=== PATIENT | male | born 1975 | race Caucasian/White ===

== ENCOUNTER 2020-09-18 00:18 | Outpatient (CLI) | payer OTHER, SELFPAY ==
[2020-09-18 18:26] LABS: SARS-CoV-2 RNA PCR Negative
== END 2020-09-18 00:19 | disposition home or self-care (01) ==
LOC: ANHCOVIDDT 00:18
PROVIDERS: Visit Provider Surgery
DX: Z20.822 Contact with and (suspected) exposure to COVID-19 (principal)
CPT/HCPCS: C9803; U0003; U0005

== ENCOUNTER 2020-09-21 01:06 | Day surgery (SDC) | payer OTHER, SELFPAY ==
[2020-09-05 08:43] VITALS: BMI 34.7
[2020-09-21 06:18] VITALS: BP 159/104; PULSE 78; RESP 20; TEMP 36.3; O2SAT 99; BMI 34.5
[2020-09-21] MEDS: LACTATED RINGERS 1,000 ML 150 ML IV CONT (06:29)
--- NOTE | 2020-09-21 07:15 | WPDANESEPPF ---
Anes - Initial Pre Proc Eval Procedure: Operation Date: 09/21/20 07:30 Proposed Procedures p Screening Colonoscopy - Ronnie Ferris DO Date/Time: 09/21/20 07:15 Surgeon: Ronnie Ferris DO Pre Op Diagnosis: Family Hx Of Colon CA Patient Data Age: 44 Gender: M Height: 6 ft 5 in Weight: 132.1 kg Last Vital Signs Temp 97.3 F L 09/21/20 06:18 Pulse 78 09/21/20 06:18 Resp 20 09/21/20 06:18 BP 159/104 H 09/21/20 06:18 Pulse Ox 99 09/21/20 06:18 Allergies Allergy/AdvReac Type Severity Reaction Status Date / Time No Known Allergies Allergy Verified 09/21/20 06:16 Home Medications Medication Instructions Recorded Confirmed Type colchicine mg 09/21/20 History Patient hx anesthesia problems: none Family hx anesthesia problems: none PMFSH Past Medical History Medical History (Updated 09/21/20 @ 07:11 by Abraham Cedeno MD) Gout attack HASEEB (obstructive sleep apnea) Social History Social History Smoking status: Never smoker Alcohol intake: current Drinks per week: 30 Substance use: never Substance use type: does not use Living arrangements: with family Spiritual care concerns: No Anes - Eval Final PreProcedure Day of Procedure 09/21/20 07:15 Patient weight: obese Heart: regular rate and rhythm Lungs: clear to auscultation Airway: Mallampati scale class III Neurological: alert and oriented Last oral intake: >/= 8 hours ASA classification: III Emergent: no Anesthetic plan: proceed Anesthesia type and monitoring: general GIVS and standard monitoring Informed Consent: The patient's anesthetic plan and its attendant risks and benefits were discussed with the patient/family/POA. Questions were solicited and answers provided to the satisfaction of the patient/family/POA.
--- NOTE | 2020-09-21 07:33 | PM.IMHP ---
H&P: HPI History of Present Illness Date/Time: 09/21/20 07:33 Chief Complaint: colonoscopy Narrative: Chris Russell is a 44 year old male who presents for colonoscopy. He has fam hx in his mother with colon cancer. denies any bowel changes. Review of Systems Review of Systems: All systems reviewed & are unremarkable except as noted in HPI and below Constitutional: Constitutional: Denies chills, Denies fever(s), Denies headache(s) and Denies weight loss Eyes: Eyes: Denies change in vision ENT: Denies dizziness, Denies headache(s), Denies neck mass and Denies throat swelling Cardiovascular: Cardiovascular: Denies chest pain, Denies lightheadedness and Denies dyspnea Respiratory: Respiratory: Denies cough, Denies dyspnea and Denies wheezing Gastrointestinal: Gastrointestinal: Denies abdominal pain, Denies change in bowel habits, Denies nausea and Denies vomiting Genitourinary: Genitourinary: Denies hematuria and Denies dysuria Musculoskeletal: Musculoskeletal: Reports as per HPI Integumentary/Breasts: Skin/Breast: Reports as per HPI Neurologic: Denies dizziness and Denies headache(s) Allergic/Immunologic: Allergic/Immunologic: Denies throat swelling and Denies wheezing [facility] Past Medical History Medical History (Updated 09/21/20 @ 07:34 by Ronnie Ferris DO) Gout attack HASEEB (obstructive sleep apnea) Social History Social History Smoking status: Never smoker Alcohol intake: current Drinks per week: 30 Substance use: never Substance use type: does not use Living arrangements: with family Spiritual care concerns: No Meds Home Medications and Allergies Home Medications Medication Instructions Recorded Confirmed Type colchicine mg 09/21/20 History Allergies Allergy/AdvReac Type Severity Reaction Status Date / Time No Known Allergies Allergy Verified 09/21/20 06:16 Vital Signs Vital Signs - 24 hr 09/21/20 06:18 Temperature 36.3 C L Pulse Rate 78 Respiratory Rate 20 Blood Pressure 159/104 H Pulse Oximetry 99 Exam Const: General: no acute distress and alert Orientation/consciousness: patient oriented x3 HENMT: Head: normocephalic and atraumatic Ears: hearing grossly normal bilaterally General nose exam: Normal nares present Mouth: Yes Normal oral and palatal mucosa present Eyes: Periorbital: periorbital findings normal Sclera: sclerae normal EOM: EOMs intact bilaterally Neck: Neck: normal visual inspection, no lymphadenopathy and trachea midline Chest: Chest palpation & inspection: normal inspection of the chest Resp: Effort & Inspection: normal respiratory effort Auscultation: clear to auscultation bilaterally Cardio: Jugular venous distension: no JVD Rate: regular rate Rhythm: regular rhythm Heart sounds: S1 normal heart sound present and S2 normal heart sound present Peripheral pulses: Peripheral pulses 2+ throughout GI: Inspection: normal to inspection GI Palp: Yes Soft to palpation, No Tenderness to palpation present (GI), No Guarding due to palpation present (GI) and No Rebound tenderness present Percussion: Yes normal to percussion Auscultation: normal bowel sounds : General: Yes no CVA tenderness Back/Spine/Pelvis: Back: no CVA tenderness Neuro: General: patient oriented x3, no focal motor deficits and CN's II-XI intact bilaterally Cognition (Neuro): normal cognition Speech: normal speech Motor exam (neuro): 5/5 motor strength present throughout Extrem: General: capillary refill normal and no clubbing, cyanosis or edema Assessment and Plan Assessment and plan (1) Family hx of colon cancer: Code(s): Z80.0 - Family history of malignant neoplasm of digestive organs Status: Acute Assessment and Plan: I have recommended colonoscopy. I have discussed the procedure, risks, benefits, and alternatives with the patient. All questions answered.
[2020-09-21 08:07] VITALS: BP 124/81; PULSE 68; RESP 20; O2SAT 97
[2020-09-21 08:17] VITALS: BP 115/84; PULSE 73; RESP 19; O2SAT 98
[2020-09-21 08:27] VITALS: BP 120/78; PULSE 72; RESP 16; O2SAT 99
== END 2020-09-21 08:36 | disposition home or self-care (01) ==
PROVIDERS: PCP Internal Medicine; Visit Provider Surgery
PROC: 0DJD8ZZ Inspection of Lower Intestinal Tract, Via Natural or Artificial Opening Endoscopic (ICD-10-PCS; CPT 45378; principal; 2020-09-21 07:30)
DX: Z12.11 Encounter for screening for malignant neoplasm of colon (principal); D12.5 Benign neoplasm of sigmoid colon; D12.8 Benign neoplasm of rectum; Z80.0 Family history of malignant neoplasm of digestive organs; G47.33 Obstructive sleep apnea (adult) (pediatric); M10.9 Gout, unspecified; E66.9 Obesity, unspecified; Z68.34 Body mass index [BMI] 34.0-34.9, adult
CPT/HCPCS: 45385; 45384; 88305; C9803; J2704; J7120; U0003; U0005

== ENCOUNTER 2022-07-17 07:15 | Outpatient (CLI) | payer BC, SELFPAY ==
--- NOTE | ~2022-07-17 | US_ITS ---
EXAMINATION: US right upper quadrant DATE: 07/17/2022 07:55 INDICATION: Abnormal liver function tests. TECHNIQUE: Multiple grayscale and Doppler ultrasound images of the abdomen were obtained. COMPARISON: None FINDINGS: The visualized portions of the head of the pancreas are normal. There is diffuse hepatic st eatosis. There is normal flow in main portal vein. The gallbladder is normal in size. No gallstones o r gallbladder wall thickening. There is no sonographic Springer sign. The common duct is normal and harika sures 3 mm. IMPRESSION: 1. Diffuse hepatic steatosis. Reviewed, dictated and finalized at location A. OPERATOR
== END 2022-07-17 07:16 | disposition home or self-care (01) ==
LOC: CHSIMG 07:17
PROVIDERS: PCP Internal Medicine; Visit Provider Internal Medicine
DX: R94.5 Abnormal results of liver function studies (principal)
CPT/HCPCS: 76705

== ENCOUNTER 2024-04-26 10:30 | Emergency (ER) | payer BC, SELFPAY ==
[2024-04-26] VITALS (21 sets, daily range): BP systolic 127–187; BP diastolic 84–115; PULSE 71–90; RESP 10–23; TEMP 36.1; O2SAT 90–97
--- NOTE | ~2024-04-26 | XR_ITS ---
Portable chest x-ray Comparison: None Clinical History: Chest pain Findings: Lungs are clear, without focal consolidation or pleural effusion. Cardiomediastinal silho uette is unremarkable. Bones and soft tissues are unremarkable. Impression: Normal chest. Reviewed, dictated and finalized at location M. Impression: Normal chest.
--- NOTE | 2024-04-26 10:33 | ED.CHESTPAIN ---
HPI - Chest Pain General Chief Complaint: Chest Pain Stated Complaint: chest pain Source: patient Mode of arrival: ambulatory Limitations: no limitations History of Present Illness HPI narrative: 48-year-old male with a history gout, hypertension presents to the ED with a 1 hour history of -- left-sided chest pain with numbness of left upper extremity. No radiation of the pain. The pain came on 1 hour after breakfast and was noted to be 6/ Ten. The pain has decreased over the past 1 hour and is currently 1/10. No shortness of breath or lightheadedness -- diaphoresis for 10 minutes patient had to prior episodes of chest pain over the past 1 year. He had blood work and EKG which were unremarkable. No history of stress test. Patient is a nonsmoker without any history of diabetes or dyslipidemia. The patient has a history of hypertension but is not on any medication. MD complaint: chest pain Onset (ago): hour(s) ( 1 hour) Timing of current episode: episodic Prior episodes: Yes Onset: during rest Pain location: left chest Pain radiation: none Pain scale (0-10): 7 Quality: aching Relieving factors: nothing Exacerbating factors: nothing Associated symptoms: diaphoresis Treatment prior to arrival: aspirin ( 2 baby aspirin tablets) Risk Factors Coronary artery disease risk factors: hypertension Related Data Allergies Allergy/AdvReac Type Severity Reaction Status Date / Time No Known Allergies Allergy Verified 09/21/20 06:16 Review of Systems Review of Systems: All systems reviewed & are unremarkable except as noted in HPI and below Constitutional: Constitutional: Reports as per HPI Eyes: Eyes: Reports as per HPI and Reports no additional eye complaints ENT: Reports system reviewed and no additional complaints, except as documented and Reports as per HPI Cardiovascular: Cardiovascular: Reports as per HPI, Reports no additional cardiovascular complaints and Reports chest pain Respiratory: Respiratory: Reports as per HPI and Reports no additional respiratory complaints Gastrointestinal: Gastrointestinal: Reports as per HPI and Reports no additional gastrointestinal complaints Genitourinary: Genitourinary: Reports no additional male genitourinary complaints and Reports as per HPI Musculoskeletal: Musculoskeletal: Reports no additional musculoskeletal complaints and Reports as per HPI Comments: gouty attacks involving the big toe and ankle Integumentary/Breasts: Skin/Breast: Reports system reviewed and no additional complaints, except as docu and Reports as per HPI Neurologic: Reports system reviewed and no additional complaints, except as documented and Reports as per HPI Psychiatric: Psychiatric: Reports no additional psychiatric complaints and Reports as per HPI Endocrine: Endocrine: Reports no additional endocrine complaints and Reports as per HPI Hematologic/Lymphatic: Hematologic/Lymphatic: Reports no additional hematologic/lymphatic complaints and Reports as per HPI Allergic/Immunologic: Allergic/Immunologic: Reports no additional allergic/immunologic complaints and Reports as per HPI [facility] Past Medical History Medical History Gout attack HASEEB (obstructive sleep apnea) Social History Social History Smoking status: Never smoker Alcohol intake: current Drinks per week: 30 Substance use: never Substance use type: does not use Living arrangements: with family Spiritual care concerns: No Exam Narrative: blood pressure initially was 187/115 which decreased spontaneously to 134/92 Const: General: no acute distress Nutritional Appearance: well nourished Orientation/consciousness: patient oriented x3 Limitations: no limitations HENMT: Head: normal to inspection Ears: external ears normal Face/Nose/Sinus: Normal external nose present Face and sinus: normal facia
--- NOTE | 2024-04-26 10:41 | ECG_ITS ---
Test Date: 2024-04-26 10:37:02 Measurements Intervals [place] Rate: 84 P: 64 HI: 159 QRS: 41 QRSD: 97 T: 58 QT: 347 QTc: 412 Interpretive Statements SINUS RHYTHM VENTRICULAR PREMATURE COMPLEX BASELINE ARTIFACT- I, II, III, AVR, AVL, AVF, V3 BORDERLINE ECG No previous ECG available for comparison Electronically Signed On 04-26-2024 17:36:29 CDT by Mtat Valdes D.O.
[2024-04-26 10:49] LABS: Basophils Absolute Auto 0.04 K/mm3 (0.00-0.10); Basophils Percent Auto 0.7 % (0.0-1.0); Eosinophils Absolute Auto 0.16 K/mm3 (0.02-0.50); Eosinophils Percent Auto 2.6 % (1.0-6.0); Hemoglobin 15.1 g/dL (14.0-18.0); Immature Granulocyte Absolute 0.02 K/mm3 (0.00-0.00); Immature Granulocyte Percent A 0.3 % (0.0-0.0); Lymphocytes Absolute Auto 1.79 K/mm3 (1.10-4.50); Lymphocytes Percent Auto 29.5 % (18.0-42.0); Mean Corpuscular HGB Conc 34.3 g/dL (32-36); Mean Corpuscular Hemoglobin 30.7 pg (27.0-31.0); Mean Corpuscular Volume 89.4 fL (78.0-102.0); Mean Platelet Volume 9.7 fl (8.7-11.0); Monocytes Absolute Auto 0.38 K/mm3 (0.10-0.90); Monocytes Percent Auto 6.3 % (2.0-11.0); Neutrophils Absolute Auto 3.67 K/mm3 (1.70-7.20); Neutrophils Percent Auto 60.6 % (50.0-70.0); Platelet Count Result 210 K/mm3 (150-420); Red Blood Count 4.92 M/mm3 (4.70-6.10); Red Cell Distribution Width 12.4 % (11.6-14.4); White Blood Count 6.1 K/mm3 (4.8-10.8)
[2024-04-26] MEDS: ASPIRIN 81 MG CHEWABLE TABLET 324 MG PO (10:58)
[2024-04-26 11:00] LABS: D Dimer 0.32 mg/L (0.19-0.50); INR 0.9; Partial Thromboplastin Time 27.1 Sec (23.9-30.70); Prothrombin Time 10.4 Seconds (9.50-12.1)
[2024-04-26 11:05] LABS: Alanine Aminotransferase 47 U/L (16-63); Albumin Level 3.9 g/dL (3.4-5.0); Alkaline Phosphatase 78 U/L (46-116); Anion Gap 9 mmol/L (4-12); Aspartate Amino Transferase 48 U/L (15-37); Bilirubin,Total 0.6 mg/dL (0.00-1.00); Blood Urea Nitrogen 14 mg/dL (7-18); Calcium 9.3 mg/dL (8.5-10.1); Carbon Dioxide 28 mmol/L (21-32); Chloride 97 mmol/L (98-108); Estimated CRCL calculation 115 ml/min; Estimated Glomerular Filt Rate > 60; Glucose 202 mg/dL (70-99); Osmolality Calculated 284 mOsm/kg (285-295); Potassium 4.2 mmol/L (3.5-5.1); Sodium 134 mmol/L (136-145); Total Protein 7.6 g/dL (6.4-8.2); Troponin I 4.8 ng/L (0.00-60.4)
--- NOTE | 2024-04-26 13:30 | ECG_ITS ---
Test Date: 2024-04-26 13:37:43 Measurements Intervals [place] Rate: 76 P: 42 LA: 155 QRS: 42 QRSD: 92 T: 88 QT: 367 QTc: 413 Interpretive Statements SINUS RHYTHM WITH OCCASIONAL VENTRICULAR PREMATURE COMPLEXES NONSPECIFIC T-WAVE ABNORMALITY- HIGH LATERAL LEADS BASELINE ARTIFACT- I, II, AVR, AVL, AVF, V1 BORDERLINE ECG Compared to ECG 04/26/2024 10:37:02 NO SIGNIFICANT CHANGE Electronically Signed On 04-26-2024 17:37:40 CDT by Matt Valdes D.O.
[2024-04-26 14:00] LABS: Troponin I 4.5 ng/L (0.00-60.4)
[2024-04-27 10:12] LABS: Hemoglobin A1C 5.7 % (<5.7)
== END 2024-04-26 14:58 | disposition home or self-care (01) ==
PROVIDERS: Emergency Provider Internal Medicine Critical Care Medicine; PCP Internal Medicine
DX: R73.9 Hyperglycemia, unspecified (principal); R07.9 Chest pain, unspecified
CPT/HCPCS: 36415; 71045; 80053; 83036; 83605; 84484; 85025; 85380; 85610; 85730; 93005; 99284; A9270

== ENCOUNTER 2024-05-03 09:18 | Outpatient (CLI) | payer BC, SELFPAY ==
--- NOTE | 2024-05-03 09:30 | EST_ITS ---
Patient Info Name: Chris Russell Age: 48 years : 1975 Gender: Male Ht: 76 in Wt: 300 lbs BSA: 2.75 m2 HR: 75 bpm BP: 117 / 82 mmHg Heart Rhythm: Sinus Arrhythmia Technical Quality: Good Exam Date: 05/03/2024 10:47 AM Exam Location: Echo Lab Patient Status: Outpatient Admit Date: 05/03/2024 Staff Ordering Physician: Nneka Torres MD Attending Provider: Nneka Torres MD Exam Type: CA stress test treadmill w NM Study Info A treadmill exercise stress test was performed. History/Risk Factors Hypertension: Yes Dyslipidemia: Yes Obesity: Yes Summary 1. 1. Negative Wil exercise stress test for ischemic ST change by ECG criteria. 2. 2. Reduced functional capacity, achieving 10 METs of workload. 3. 3. Hypertensive response to exercise. 4. 4. Appropriate HR response to exercise. 5. 5. Appropriate HR recovery at 1 minute post exercise. 6. 6. Nuclear scan to follow and will be reported separately. Please correlate with it. Protocol: Wil Stress ECG Details Stage: REST Duration (min): 1 min : 47 sec Speed (mph): 0.0 Grade (%): 0 HR (bpm): 74 SBP (mmHg): 117 DBP (mmHg): 82 METS: --- Stage: REST Duration (min): 7 min : 6 sec Speed (mph): 0.0 Grade (%): 0 HR (bpm): 88 SBP (mmHg): 117 DBP (mmHg): 82 METS: --- Stage: STAGE 1 Duration (min): 1 min : 0 sec Speed (mph): 1.7 Grade (%): 10 HR (bpm): 99 SBP (mmHg): 117 DBP (mmHg): 82 METS: --- Stage: STAGE 1 Duration (min): 2 min : 0 sec Speed (mph): 1.7 Grade (%): 10 HR (bpm): 104 SBP (mmHg): 117 DBP (mmHg): 82 METS: --- Stage: STAGE 1 Duration (min): 3 min : 0 sec Speed (mph): 1.7 Grade (%): 10 HR (bpm): 106 SBP (mmHg): 199 DBP (mmHg): 76 METS: --- Stage: STAGE 2 Duration (min): 1 min : 0 sec Speed (mph): 2.5 Grade (%): 12 HR (bpm): 119 SBP (mmHg): 199 DBP (mmHg): 76 METS: --- Stage: STAGE 2 Duration (min): 2 min : 0 sec Speed (mph): 2.5 Grade (%): 12 HR (bpm): 128 SBP (mmHg): 199 DBP (mmHg): 76 METS: --- Stage: STAGE 2 Duration (min): 3 min : 0 sec Speed (mph): 2.5 Grade (%): 12 HR (bpm): 136 SBP (mmHg): 218 DBP (mmHg): 76 METS: --- Stage: STAGE 3 Duration (min): 1 min : 0 sec Speed (mph): 3.4 Grade (%): 14 HR (bpm): 153 SBP (mmHg): 218 DBP (mmHg): 76 METS: --- Stage: STAGE 3 Duration (min): 2 min : 0 sec Speed (mph): 3.4 Grade (%): 14 HR (bpm): 169 SBP (mmHg): 218 DBP (mmHg): 76 METS: --- Stage: STAGE 3 Duration (min): 2 min : 0 sec Speed (mph): 3.4 Grade (%): 14 HR (bpm): 169 SBP (mmHg): 218 DBP (mmHg): 76 METS: --- Stage: RECOVERY Duration (min): 0 min : 59 sec Speed (mph): 0.0 Grade (%): 0 HR (bpm): 147 SBP (mmHg): 165 DBP (mmHg): 73 METS: --- Stage: RECOVERY Duration (min): 1 min : 59 sec Speed (mph): 0.0 Grade (%): 0 HR (bpm): 122
--- NOTE | 2024-05-03 13:46 | WPDCARIOSTRE ---
Nuclear Stress Test INDICATIONS Indications: Chest pain PROCEDURE Procedure Performed: Myocardial Perf Spect-Multi Procedure: Patient exercised on a standard Wil protocol and immediately as injected with 33.6 mCi of cardiolyte. Multiple tomographic images were obtained. These are of good quality. There is a small size, mild inferior perfusion defect with stress imaging. A separate resting images were obtained after patient was injected with 11.2 mCi of cardiolyte. Multiple tomographic images were obtained. These are of good quality. There is a small size, mild inferior perfusion defect with rest imaging. CONCLUSION Conclusion: 1. Myocardial perfusion imaging demonstrates a fixed small size inferior defect suggestive of diaphragmatic attenuation artifact. 2. No evidence of reversible ischemia. 3. Left ventriculogram demonstrates mild LV systolic dysfunction at 48% with no wall motion abnormalities. 4. TID score 0.88 is normal.
== END 2024-05-03 09:19 | disposition home or self-care (01) ==
LOC: CHSCARD 09:22
PROVIDERS: PCP Internal Medicine; Visit Provider Internal Medicine
DX: R07.9 Chest pain, unspecified (principal); R94.31 Abnormal electrocardiogram [ECG] [EKG]
CPT/HCPCS: 78452; 93017; A9502

== ENCOUNTER 2025-06-27 01:01 | Day surgery (SDC) | payer BC, SELFPAY ==
[2025-02-17 10:56] VITALS: BMI 35.6
--- NOTE | 2025-06-15 10:41 | PC.NURSE ---
Patient states no new medical history since previous PAT phone call done in January.
[2025-06-27 06:36] VITALS: BP 110/74; PULSE 74; RESP 18; TEMP 36.2; O2SAT 99
[2025-06-27] MEDS: LACTATED RINGERS 1,000 ML 150 ML IV CONT (06:44)
--- NOTE | 2025-06-27 06:46 | P.PNAN_ITS ---
Anes - Initial Pre Proc Eval Procedure: Operation Date: 06/27/25 08:00 Proposed Procedures p Screening Colonoscopy - Ronnie Ferris DO Date/Time: 06/27/25 06:46 Surgeon: Ronnie Ferris DO Pre Op Diagnosis: Prior history of colon polyps Patient Data Age: 49 Gender: M Height: 1.96 m Weight: 136.4 kg Last Vital Signs Temp 36.2 C L 06/27/25 06:36 Pulse 74 06/27/25 06:36 Resp 18 06/27/25 06:36 BP 110/74 06/27/25 06:36 Pulse Ox 99 06/27/25 06:36 O2 Del Method Room Air 06/27/25 06:36 Allergies Allergy/AdvReac Type Severity Reaction Status Date / Time No Known Allergies Allergy Verified 06/27/25 06:35 Home Medications ?Medication ?Instructions ?Recorded ?Confirmed ?Type colchicine 0.6 mg tablet See Rx Instructions .Route 0 12/25/23 02/17/25 Rx .COMPLEX #60 tabs indomethacin 50 mg capsule 50 mg PO Q6H PRN pain #60 c aps 12/25/23 02/17/25 Rx allopurinol 100 mg tablet 100 mg PO DAILY 02/17/2511/16 History losartan 50 mg tablet (Cozaar) 50 mg PO DAILY 02/17/25 06/27/25 History Patient hx anesthesia problems: none Family hx anesthesia problems: none Results Review: All pre-operative results and documents have been reviewed as part of the pre- operative evaluation. [facility] Past Medical History Medical History Gout attack HASEEB (obstructive sleep apnea) Social History Social History Smoking status: Never smoker Alcohol intake: current Drinks per week: 50 Substance use: never Substance use type: does not use Living arrangements: with family Additional living arrangements comments: with sp Anes - Eval Final PreProcedure Day of Procedure 06/27/25 06:46 Patient weight: obese Heart: regular rate and rhythm Lungs: clear to auscultation Airway: Mallampati scale class II Neurological: alert and oriented Last oral intake: >/= 8 hours ASA classification: III Emergent: no Anesthetic plan: proceed Anesthesia type and monitoring: general GIVS and standard monitoring Results Review: All pre-operative results and documents have been reviewed as part of the pre- operative evaluation. Informed Consent: The patient's anesthetic plan and its attendant risks and benefits were discussed with the patient/family/POA. Questions were solicited and answers p rovided to the satisfaction of the patient/family/POA.
--- NOTE | 2025-06-27 08:03 | PM.IMHP ---
H&P: HPI History of Present Illness Date/Time: 06/27/25 08:03 Chief Complaint: family history of colon cancer, personal history of polyps Narrative: this is a 49-year-old man who presents for colonoscopy. His last colonoscopy was 3 years ago and polyps were removed. He has a family history of colon cancer in his mother. He denies any hematochezia or melena. Review of Systems Review of Systems: All systems reviewed & are unremarkable except as noted in HPI and below Constitutional: Constitutional: Denies chills, Denies fever(s), Denies headache(s) and Denies weight loss Eyes: Eyes: Denies change in vision ENT: Denies dizziness, Denies headache(s), Denies neck mass and Denies throat swelling Cardiovascular: Cardiovascular: Denies chest pain, Denies lightheadedness and Denies dyspnea Respiratory: Respiratory: Denies cough, Denies dyspnea and Denies wheezing Gastrointestinal: Gastrointestinal: Denies abdominal pain, Denies change in bowel habits, Denies nausea and Denies vomiting Genitourinary: Genitourinary: Denies hematuria and Denies dysuria Musculoskeletal: Musculoskeletal: Reports as per HPI Integumentary/Breasts: Skin/Breast: Reports as per HPI Neurologic: Denies dizziness and Denies headache(s) Allergic/Immunologic: Allergic/Immunologic: Denies throat swelling and Denies wheezing PMF Past Medical History Medical History Gout attack HASEEB (obstructive sleep apnea) Social History Social History Smoking status: Never smoker Alcohol intake: current Drinks per week: 50 Substance use: never Substance use type: does not use Living arrangements: with family Additional living arrangements comments: with sp Meds Home Medications and Allergies Home Medications ?Medication ?Instructions ?Recorded ?Confirmed ?Type colchicine 0.6 mg tablet See Rx Instructions .Route 12/25/23 02/17/25 Rx .COMPLEX #60 tabs indomethacin 50 mg capsule 50 mg PO Q6H PRN pain #60 caps 12/25/23 02/17/25 Rx allopurinol 100 mg tablet 100 mg PO DAILY 02/17/25 06/27/25 History losartan 50 mg tablet (Cozaar) 50 mg PO DAILY 02/17/25 06/27/25 History Allergies Allergy/AdvReac Type Severity Reaction Status Date / Time No Known Allergies Allergy Verified 06/27/25 06:35 Vital Signs Vital Signs - 24 hr 06/27/25 06:36 Temperature 97.1 F L Pulse Rate 74 Respiratory Rate 18 Blood Pressure 110/74 Pulse Oximetry 99 Oxygen Delivery Room Air Exam Const: General: no acute distress and alert Orientation/consciousness: patient oriented x3 HENMT: Head: normocephalic and atraumatic Ears: hearing grossly normal bilaterally Face/Nose/Sinus: Normal nares present Mouth: Yes Normal oral and palatal mucosa present Eyes: Periorbital: periorbital findings normal Sclera: sclerae normal EOM: EOMs intact bilaterally Neck: Neck: normal visual inspection, no lymphadenopathy and trachea midline Chest: Chest palpation & inspection: normal inspection of the chest Resp: Effort & Inspection: normal respiratory effort Auscultation: clear to auscultation bilaterally Cardio: Jugular venous distension: no JVD Rate: regular rate Rhythm: regular rhythm Heart sounds: S1 normal heart sound present and S2 normal heart sound present Peripheral pulses: Peripheral pulses 2+ throughout GI: Inspection: normal to inspection GI Palp: Yes Soft to palpation, No Tenderness to palpation present (GI), No Guarding due to palpation present (GI) and No Rebound tenderness present Percussion: Yes normal to percussion Auscultation: normal bowel sounds : General: Yes no CVA tenderness Back/Spine/Pelvis: Back: no CVA tenderness Neuro: General: patient oriented x3, no focal motor deficits and CN's II-XI intact bilaterally Cognition (Neuro): normal cognition Speech: normal speech Motor exam (neuro): 5/5 motor strength present throughout Extrem: General: capillary refill normal and no clubbing, cyanosis or edema Assessment and Plan Assessment and plan (1) Family hx of colon cancer: Code(s): Z80.0 - Family history of malignant neoplasm of digestive organs Status: Acute Assessment and Plan: I have recommended colonoscopy. I have discussed the procedure, risks, benefits, and alternatives. Questions were answered. Patient is agreeable to proceed. (2) Hx of colonic polyps: Code(s): Z86.0100 - Personal history of colon polyps, unspecified Status: Acute
[2025-06-27 08:37] VITALS: BP 126/78; PULSE 90; RESP 21; O2SAT 95
[2025-06-27 08:47] VITALS: BP 113/60; PULSE 84; RESP 22; O2SAT 96
[2025-06-27 08:57] VITALS: BP 124/69; PULSE 71; RESP 24; O2SAT 99
== END 2025-06-27 09:06 | disposition home or self-care (01) ==
PROVIDERS: PCP Internal Medicine; Visit Provider Surgery
PROC: 0DJD8ZZ Inspection of Lower Intestinal Tract, Via Natural or Artificial Opening Endoscopic (ICD-10-PCS; CPT 45378; principal; 2025-06-27 08:00)
DX: Z12.11 Encounter for screening for malignant neoplasm of colon (principal); Z86.0100 Personal history of colon polyps, unspecified; Z80.0 Family history of malignant neoplasm of digestive organs; E66.9 Obesity, unspecified; Z68.35 Body mass index [BMI] 35.0-35.9, adult
CPT/HCPCS: 45378; J2704; J7120

== ENCOUNTER 2025-07-19 10:09 | Outpatient (CLI) | payer BC, SELFPAY ==
--- OUTSIDE RECORDS SUMMARY | 2025-07-19 11:18 | XMS_ITS | Clinical Summary ---
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 LEAD TELLER Gender Identity Not on file Sexual Orientation Not on file Last Filed Vital Signs Vital Sign Reading Time Taken Comments Blood Pressure 150/98 07/27/2021 11:30 AM LEAD TELLER Pulse 90 07/27/2021 11:30 AM LEAD TELLER Temperature 37.1 C (98.7 F) 07/27/2021 11:30 AM LEAD TELLER Respiratory Rate 16 07/27/2021 11:30 AM LEAD TELLER Oxygen Saturation 98% 07/27/2021 11:30 AM LEAD TELLER Inhaled Oxygen Concentration - - Weight 129.3 kg (285 lb) 07/27/2021 11:30 AM LEAD TELLER Height 195.6 cm (6' 5) 07/27/2021 11:30 AM LEAD TELLER Body Mass Index 33.8 07/27/2021 11:30 AM LEAD TELLER Plan of Treatment Health Maintenance Due Date Last Done Comments DTAP/TDAP/TD VACCINES (1 - Tdap) 1996 HEPATITIS B VACCINES (1 of 3 - 19+ 3-dose series) 09/1996 COLORECTAL SCREENING 2022 Colorectal Cancer Screening 2022 FIT-DNA Q 3 years 2022 FIT/FOBT Q 1 year 2022 Flex Sig/CT Colonography Q 5 years 2022 INFLUENZA VACCINE (#1) 2025 Insurance [place] [id number] POS II
--- NOTE | 2025-07-20 13:53 | WPDHOLTEREM ---
Holter/Event Monitor Holter/Event Monitor Date of procedure: 07/19/25 Holter/Event Procedure: 24 Hr Holter Monitor Indications: Palpitations Conclusion: 1. 24 hour holter monitor on 07/19/25. 2. Underlying rhythm is sinus rhythm. HR range 53-129 bpm; average 80 bpm. 3. There are 34 premature supraventricular complexes and 3 supraventricular couplets. No supraventricular tachycardia. 4. There are 11,918 premature ventricular complexes, 134 ventricular couplets, 6 ventricular triplets, 14,113 ventricular bigeminy, 1,943 ventricular trigeminy. No ventricular tachycardia. 5. No significant pauses greater than 2 seconds. 6. No symptoms available for correlation.
== END 2025-07-19 10:10 | disposition home or self-care (01) ==
PROVIDERS: PCP Internal Medicine; Visit Provider Internal Medicine
DX: R00.2 Palpitations (principal)
CPT/HCPCS: 93225; 93226